=== PATIENT | male | born 1970 | race Caucasian/White ===

== ENCOUNTER 2017-11-25 22:38 | Emergency (ER) | payer OTHER ==
[~2017-11-25] VITALS: Ht 180.3 cm; Wt 106.6 kg
[2017-11-26] MEDS ORDERED: MUPIROCIN15 GM TOP (01:52)
[2017-11-26] MEDS ORDERED: LEVAQUIN750 MG PO (01:52)
== END 2017-11-26 02:06 | disposition home or self-care (01) ==
LOC: ER 22:38
DX: L03.032 Cellulitis of left toe (principal)